=== PATIENT | female | born 1980 | race Caucasian/White ===

== ENCOUNTER 2016-08-21 18:15 | Emergency (ER) | payer OTHER ==
[~2016-08-21] VITALS: Ht 160 cm; Wt 102.5 kg
[2016-08-21 18:35] VITALS: BP 119/69
--- NOTE | 2016-08-21 22:11 | NUR ---
PT TAKEN TO BED 8
--- NOTE | 2016-08-21 22:14 | NUR ---
36 Y/O W/C/O L LOWER ABD PAIN X TODAY. DENIES ANY N/V, FEVER, VAG DISCHARGE OR VAG BLEEDING. ER MD AWARED, NO S/S OF DISTRESS NOTED AT THE MOMENT.
--- NOTE | 2016-08-21 22:25 | NUR ---
Dr. Alvarado evaluating patient at bedside.
--- NOTE | 2016-08-21 22:37 | NUR ---
PT TAKEN TO ULTRASOUND
[2016-08-21 22:45] LABS: APPEARANCE,URINE SL CLOUDY (CLEAR); BILIRUBIN,URINE NEGATIVE (NEGATIVE); BLOOD, URINE NEGATIVE (NEGATIVE); COLOR,URINE YELLOW (YELLOW); LEUKOCYTE ESTERASE ,URINE TRACE (NEGATIVE); NITRITE, URINE NEGATIVE (NEGATIVE); PH,URINE 5.5 (5.0-9.0); PROTEIN,URINE NEGATIVE (NEGATIVE); UGLUCOSE NEGATIVE (NEGATIVE); UROBILINOGEN,URINE 0.2 EU/dL (0.2 - 1)
--- NOTE | 2016-08-21 23:08 | NUR ---
PER ER MD DR ESQUIVEL TO GIVE PT TYLENOL 1000MG.
[2016-08-21] MEDS ORDERED: ACETAMINOPHEN EXTRA STRENGTH 500 MG TAB PO ONE (23:10)
[2016-08-21] MEDS ORDERED: ACETAMINOPHEN EXTRA STRENGTH 500 MG TAB ONE (23:10)
[2016-08-21 23:17] LABS: BACTERIA,URINE 1+ /HPF (None Seen); MUCUS,URINE 4+ /LPF (None Seen); RBC,URINE 0-3 /HPF (0-5)
[2016-08-22 00:05] VITALS: BP 110/68
--- NOTE | 2016-08-22 00:05 | NUR ---
Patient discharged with v/s stable. Written and verbal after care instructions given and explained. Patient alert, oriented and verbalized understanding of instructions. Ambulatory with steady gait. All questions addressed prior to discharge. ID band removed. Patient advised to follow up with OBGYN TOMORROW, OR RETURN TO ER IF CONDITION GETS WORSE. Rx of NAPROSYN AND NORCO given. Patient educated on indication of medication including possible reaction and side effects. Opportunity to ask questions provided and answered.
== END 2016-08-22 00:05 | disposition home or self-care (01) ==
LOC: MED 18:15
DX: O36.4XX0 Maternal care for intrauterine death, not applicable or unspecified (principal); Z3A.12 12 weeks gestation of pregnancy; Z88.6 Allergy status to analgesic agent
CPT/HCPCS: 76817; 81001; 81025; 87086; 99285

== ENCOUNTER 2017-06-28 08:31 | Emergency (ER) | payer OTHER ==
[~2017-06-28] VITALS: Ht 160 cm; Wt 103.9 kg
[2017-06-28 08:43] VITALS: BP 116/68
[2017-06-28] MEDS ORDERED: KETOROLAC 60 MG/2 ML VIAL IM ONE ×2 (09:05→09:11)
--- NOTE | 2017-06-28 09:17 | NUR ---
PATIENT PRESENTS TO ED WITH C/O LLQ pain since 399;hx OF left ovarian cyst . PT FEELS NAUSEOUS BUT DENIES V/D; SKIN IS PINK/WARM/DRY; AAOX4 WITH EVEN AND STEADY GAIT; LUNGS CLEAR BL; HR EVEN AND REGULAR; PT DENIES ANY FEVER, CP, SOB, OR COUGH AT THIS TIME; PATIENT STATES PAIN OF 6/10 AT THIS TIME; PATIENT POSITIONED FOR COMFORT; HOB ELEVATED; BEDRAILS UP X2; BED DOWN. ER MD MADE AWARE OF PT STATUS.
--- NOTE | 2017-06-28 09:58 | NUR ---
pt went to CT SCAN acco,panied by tech.
--- NOTE | 2017-06-28 10:28 | NUR ---
PT BACK FROM US ACCOMPANIED BY BAUTISTA.WILL CONTINUE TO MONITOR PT.
--- NOTE | 2017-06-28 10:39 | NUR ---
PT VERBALIZES RELIEF FROM PAIN;NO FACIAL GRIMMACING NOTED; WILL CONTINUE TO MONITOR.
[2017-06-28 11:06] VITALS: BP 103/54
--- NOTE | 2017-06-28 11:06 | NUR ---
Patient discharged with v/s stable. Written and verbal after care instructions given and explained. Patient alert, oriented and verbalized understanding of instructions. Ambulatory with steady gait. All questions addressed prior to discharge. ID band removed. Patient advised to follow up with PMD. Rx of NAPROSYN AND NORCO given. Patient educated on indication of medication including possible reaction and side effects. Opportunity to ask questions provided and answered.
== END 2017-06-28 11:06 | disposition home or self-care (01) ==
LOC: MED 08:31
DX: N83.202 Unspecified ovarian cyst, left side (principal); Z88.8 Allergy status to other drugs, medicaments and biological substances
CPT/HCPCS: 76830; 81002; 81025; 93325; 96372; 99284; J1885

== ENCOUNTER 2018-03-10 15:52 | Inpatient (IN) | payer OTHER ==
[~2018-03-10] VITALS: Ht 160 cm; Wt 107.5 kg
[2018-03-10 15:58] VITALS: BP 115/76
--- NOTE | 2018-03-10 17:32 | NUR ---
PT AMBULATED TO ER BED 4
--- NOTE | 2018-03-10 17:35 | NUR ---
38 Y/O F W/C/O N/V/D AND GENERALIZED ABD PAIN SINCE THIS AM AROUND 10. ABD SOFT, NON-TENDER TO PALPATION; SKIN IS INTACT, PINK/WARM/DRY; AAOX4, PERRL, WITH EVEN AND STEADY GAIT; LUNGS CLEAR BL, BREATHING UNLABORED; HR EVEN AND REGULAR, BL PERIPHERAL PULSES PRESENT; BS ACTIVE X4, NO TENDERNESS TO PALPATION, NO HEPATOSPLENOMEGALLY PALPATED, RESONANT TO PERCUSSION; PT DENIES ANY FEVER, CP, SOB, OR COUGH AT THIS TIME; PT STATES 10/10 PAIN AT THIS TIME; VSS; PATIENT POSITIONED FOR COMFORT; HOB ELEVATED; BEDRAILS UP X2; BED DOWN. HX DENIES RX DENIES ALLERGIES: MEPERIDINE
[2018-03-10 18:15] LABS: APPEARANCE,URINE HAZY (CLEAR); BILIRUBIN,URINE 1+ (NEGATIVE); BLOOD, URINE 1+ (NEGATIVE); COLOR,URINE YELLOW (YELLOW); LEUKOCYTE ESTERASE ,URINE 2+ (NEGATIVE); NITRITE, URINE NEGATIVE (NEGATIVE); PH,URINE 6.5 (5.0-9.0); UGLUCOSE NEGATIVE (NEGATIVE)
[2018-03-10] MEDS ORDERED: ONDANSETRON 4 MG/2 ML VIAL IVP ONE (18:20)
[2018-03-10] MEDS ORDERED: FAMOTIDINE 20 MG/2 ML VIAL IVP ONE (18:20)
[2018-03-10] MEDS ORDERED: KETOROLAC 30 MG/ML VIAL IVP ONE (18:20)
[2018-03-10] MEDS ORDERED: MORPHINE SULFATE 4 MG/ML SYR IVP ONE (18:20)
[2018-03-10] MEDS ORDERED: NACL 0.9% 1,000 ML IV SCH (18:20)
[2018-03-10] MEDS ORDERED: PROMETHAZINE 25 MG/ML VIAL IM ONE (18:20)
[2018-03-10] MEDS ORDERED: NACL 0.9% 1,000 ML IV ONE ×2 (18:20→20:15)
[2018-03-10 18:28] LABS: RBC,URINE 0-5 (RARE) /HPF (0-5)
--- NOTE | 2018-03-10 18:30 | NUR ---
PT. RESTING COMFORTABLY IN BED , VSS. WILL CONTINUE TO MONITOR.
[2018-03-10 18:37] LABS: BARBITURATE, URINE NEG. ng/ml (NEG <=200); BENZODIAZEPINE, URINE NEG. ng/mL (NEG <=200); CANNABINOID, URINE NEG. ng/mL (NEG <=50); COCAINE, URINE NEG. ng/mL (NEG <=300); OPIATE, URINE NEG. ng/mL (NEG <=2000); PHENCYCLIDINE SCREEN,URINE NEG. ng/mL (NEG <=25)
[2018-03-10 19:06] LABS: ANION GAP 12.1 (8-16); CARBON DIOXIDE 21.8 mmol/L (21-32); CREATININE 1.3 mg/dL (0.6-1.3); POTASSIUM 3.9 mmol/L (3.5-5.1)
[2018-03-10 19:11] LABS: ALBUMIN 3.8 g/dL (3.4-5.0); TOTAL BILIRUBIN 0.5 mg/dL (0.0-1.0)
--- NOTE | 2018-03-10 19:15 | NUR ---
RECEIVED REPORT FROM AM NURSE. PT RESTING COMFORTABLY IN BED, REPORTS 0/10 PAIN, VSS. AT BEDSIDE. ALL NEEDS MET AT THIS TIME.
--- NOTE | 2018-03-10 19:15 | NUR ---
Pt report given to DANIA LAUGHLIN . Transfer of care at this time.
[2018-03-10 19:30] LABS: HEMOGLOBIN 13.7 g/dL (12.0-16.0); MEAN CORPUSCULAR HEMOGLOBIN 28 pg (27-31); MEAN CORPUSCULAR HGB CONC 33 g/dL (33-37); MEAN CORPUSCULAR VOLUME 83.2 fL (80-94); PLATELET COUNT (AUTO) 304 K/uL (140-450); RED BLOOD CELL COUNT(AUTO) 4.93 MIL/uL (4.20-5.40); RED CELL DISTRIBUTION WIDTH 14.4 % (11.6-13.7); WHITE BLOOD COUNT (AUTO) 13.4 K/uL (4.8-10.8)
[2018-03-10 19:36] LABS: LYMPHOCYTES % (MANUAL) 8 % (20-46); MONOCYTES % (MANUAL) 1 % (5-12)
[2018-03-10] MEDS ORDERED: PIPERACILLIN/TAZOBACTAM 3.375 GM in DEXTROSE 5% 50 ML IV ONE (20:15)
[2018-03-10] MEDS ORDERED: PIPERACILLIN/TAZOBACTAM 3.375 GM VIAL IV ONE (20:34)
--- NOTE | 2018-03-10 21:06 | NUR ---
Dr. Victoria evaluating patient at bedside.
--- NOTE | 2018-03-10 21:37 | NUR ---
PT RESTING IN BED, REPORTS 3/10 ABD PAIN TOLERABLE AT THIS TIME, VSS, ALL NEEDS MET AT THIS TIME.
--- NOTE | 2018-03-10 22:30 | NUR ---
Patient will be admitted to care of DR. BERMUDEZ. Admited to MS. Will go to room 105B. Belongings list completed. Report to DANIA GREEN AT BEDSIDE.
[2018-03-10 22:36] VITALS: BP 97/55
--- NOTE | 2018-03-10 22:37 | NUR ---
PT ARRIVED VIA WHEELCHAIR FROM ER, PT AMBULATED TO BED, TOLERATED WELL, REPORT RECEIVED FROM ER NURSE TRUMAN RN, PT STABLE, IV TO L AC 20G DATED, PATENT, INTACT, SL, PT ON ROOM AIR, NO SOB, PT DENIES ANY PAIN AT THIS MOMENT, ORIENT PT TO ROOM, BED, AND CALL LIGHT, MRSA SWAB TAKEN, V/S TAKEN, INITIAL ASSESSMENT DONE, ALL SAFETY PRECAUTION MET, CALL LIGHT WITHIN REACH, WILL CONTINUE TO MONITOR.
[2018-03-10] MEDS ORDERED: INFLUENZA VIRUS VACCINE QUAD 0.5 ML SYR IMVAC ONE (23:00)
[2018-03-10] MEDS ORDERED: ONDANSETRON 4 MG/2 ML VIAL IVP PRN (23:05)
[2018-03-10] MEDS ORDERED: ACETAMINOPHEN 325 MG TAB PO PRN (23:05)
--- NOTE | 2018-03-10 23:08 | NUR ---
TALKED TO DR. MAHAJAN, STATED TO ORDER PT FOR NPO EXCEPT MEDICATION, IV ZOSYN 3.375G Q8H, ZOFRAN 4MG Q6H PRN IVP, TYLENOL 650MG PO Q6H PRN FEVER, MORPHINE 2MG Q4H PRN PAIN, AND NS 75ML/HR, WILL PUT IN ORDERS, AND CONTINUE WITH ORDERS.
[2018-03-10] MEDS ORDERED: INFLUENZA VIRUS VACCINE QUAD 0.5 ML SYR IMVAC PRN (23:35)
[2018-03-10] MEDS: NACL 0.9% 1,000 ML IV SCH (23:42)
[2018-03-10] MEDS: MORPHINE SULFATE 2 MG/ML SYR IVP PRN (23:49)
--- NOTE | 2018-03-10 23:49 | NUR ---
PT STATED HAVING PAIN TO THE UPPER ABD 7/10, PAIN MEDICATION PER MD ORDER ADMINISTERED, PT TOLERATED WELL, NO DISTRESS NOTED, CALL LIGHT WITHIN REACH, WILL CONTINUE TO MONITOR.
[2018-03-11] VITALS: BP 96/56
--- NOTE | 2018-03-11 02:15 | NUR ---
CHECKED ON PT, PT SLEEPING, NO DISTRESS NOTED, CALL LIGHT WITHIN REACH, WILL CONTINUE TO MONITOR.
[2018-03-11] MEDS ORDERED: PIPERACILLIN/TAZOBACTAM 3.375 GM VIAL IV ONE (04:46)
[2018-03-11] MEDS: PIPER/TAZO 3.375GM/D5W PREMIX 50 ML IV SCH ×3 (04:49→21:14)
--- NOTE | 2018-03-11 04:49 | NUR ---
DUE MEDICATION ZOSYN ADMINISTERED, MEDICATION DID NOT SCAN, PT TOLERATED WELL, NO DISTRESS NOTED, CALL LIGHT WITHIN REACH, WILL CONTINUE TO MONITOR.
--- NOTE | 2018-03-11 07:28 | NUR ---
ENDORSED PT TO DAY SHIFT NURSE AMADO RN, PT STABLE, NO DISTRESS NOTED, CALL LIGHT WITHIN REACH.
--- NOTE | 2018-03-11 07:30 | NUR ---
RECEIVED REPORT FROM NIGHT RN. PT RESTING IN BED. AAOX4. NO S/S OF ACUTE DISTRESS. PT DENIES PAIN AT THIS TIME. IV SITE PATENT AND INTACT. PLAN OF CARE DISCUSSED. PT VERBALIZED UNDERSTANDING. CALL LIGHT WITHIN REACH. SAFETY MEASURES ENSURED. WILL CONTINUE TO MONITOR.
[2018-03-11 08:00] VITALS: BP 91/53
--- NOTE | 2018-03-11 08:11 | NUR ---
PATIENT HAS BEEN SCREENED AND CATEGORIZED HIGH NUTRITION RISK. PATIENT WILL BE SEEN WITHIN 1-2 DAYS OF ADMISSION. 03/11/18 03/12/[address]
--- NOTE | 2018-03-11 09:46 | NUR ---
PT RESTING IN BED. NO S/S OF ACUTE DISTRESS. PT DENIES PAIN. CALL LIGHT WITHIN REACH. SAFETY MEASURES ENSURED. WILL CONTINUE TO MONITOR.
--- NOTE | 2018-03-11 10:56 | NUR ---
PT RESTING IN BED. NO S/S OF ACUTE DISTRESS. PT DENIES PAIN. CALL LIGHT WITHIN REACH. SAFETY MEASURES ENSURED. WILL CONTINUE TO MONITOR.
[2018-03-11] MEDS: NACL 0.9% 1,000 ML IV SCH (12:27)
[2018-03-11] MEDS: MORPHINE SULFATE 2 MG/ML SYR IVP PRN ×2 (12:27→19:53)
--- NOTE | 2018-03-11 13:09 | NUR ---
PT RESTING IN BED. NO S/S OF ACUTE DISTRESS. MEDICATED FOR PAIN PREVIOUSLY. WILL CONTINUE TO MONITOR.
--- NOTE | 2018-03-11 13:23 | NUR ---
CM NOTE ADMISSION REVIEW DONE. INITIAL REVIEW FAXED TO [facility] [phone].
--- NOTE | 2018-03-11 14:02 | NUR ---
03/11/18 RD INITIAL ASSESSMENT COMPLETED PLEASE REFER TO NUTRITION ASSESSMENT UNDER CARE ACTIVITY FOR ESTIMATED NUTRITIONAL NEEDS. 1. CONTINUE NPO MEDICALLY NECESSARY 2. WHEN PATIENT IS MEDICALLY STABLE CONSIDER A BLAND DIET TOLERATED. 3. PROVIDED GALLBLADDER NUTRITION EDUCATION 4. RD TO FOLLOW-UP 3-5 DAYS, MODERATE RISK KORI VELASQUEZ RD
[2018-03-11 15:53] VITALS: BP 104/46
--- NOTE | 2018-03-11 15:54 | NUR ---
PT RESTING IN BED. NO S/S OF ACUTE DISTRESS. PT DENIES PAIN. CALL LIGHT WITHIN REACH. SAFETY MEASURES ENSURED. WILL CONTINUE TO MONITOR.
--- NOTE | 2018-03-11 18:35 | NUR ---
CALLED FROM NUCLEAR MED REGARDING PT'S IV. UPON ARRIVAL PT'S IV FLUSHING WELL, DRAWING BACK BLOOD, PT DENIES PAIN, AND PT STATES SHE CAN FEEL THE LIQUID GOING UP HER ARM. IV APPEARS TO BE PATENT AND INTACT.
--- NOTE | 2018-03-11 19:19 | NUR ---
RECEIVED ENDORSEMENT FROM AMADO NAJERA DAYSHIFT NURSE FOR CONTINUITY OF CARE, PT IN STABLE CONDITION.
--- NOTE | 2018-03-11 19:19 | NUR ---
ENDORSED PLAN OF CARE TO NIGHT RN. PT STABLE
--- NOTE | 2018-03-11 20:00 | NUR ---
PT RECEIVED MORPHINE WHILE IN HIDA SCAN AT NUCLEAR MEDICINE, POSITIVE EFFECT NOTED.
--- NOTE | 2018-03-11 21:00 | NUR ---
PT RETURNED FORM NUCLEAR MEDICINE HIDA SCAN COMPLETE. V/S FOLLOWS T 98.8 P 71 R 18 B/P 98/63 02 97 WITH R/A. HARISH MASSEY ORDERED, NO ADVERSE REACTION NOTED.
--- NOTE | 2018-03-11 23:00 | NUR ---
IV SITE ON L AC LOOKS SLIGHTLY RED ABOVE SITE AND PT C/O OF SOME DISCOMFORT IN IV SITE AND THE DIFFICULTY OF KEEPING HAND STRAIGHT, NEW IV SITE PROVIDED ON R HAND WITH 22G, IV SITE FLUSHED PATENT, ATTEMPT STICK X1 PT TOLERATED PROCEDURE WELL. OLD IV SITE TAKEN OUT.PT C/O OF DIAHRREAH X1 DURING HIDA SCAN AND X1 AT ABOUT 1030PM PT C/O OF SLIGHT NAUSEA BUT SAID SHE IS OK, PT DENIES SYDNEE AT THIS TIME.
[2018-03-12] VITALS: BP 102/48
--- NOTE | 2018-03-12 01:00 | NUR ---
PT IN BED NO S/S OF PAIN OR DISTRESS NOTED; V/S FOLLOWS T 98.9 P 80 R 18 B/P 102/48 02 94% WITH R/A IVF RUNNING N/S AT 75 MLS/ HR. BED LOW AND CALL COLEMAN IN REACH.
[2018-03-12] MEDS: NACL 0.9% 1,000 ML IV SCH (01:45)
--- NOTE | 2018-03-12 03:00 | NUR ---
PT ASLEEP WITH NO S/S OF PAIN OR DISTRESS NOTED. BED LOW SIDE RAILS UP X2 AND IVF RUNNING ORDERED.
[2018-03-12] MEDS: PIPER/TAZO 3.375GM/D5W PREMIX 50 ML IV SCH (05:44)
--- NOTE | 2018-03-12 07:20 | NUR ---
RECEIVED REPORT FROM NURSE PRACTITIONER MANAGER NURSE. PT IS AAOX4. NO S/S OF ACUTE DISTRESS ON RM AIR. PT DENIES PAIN AT THIS TIME. IV SITE PATENT AND INTACT, INFUSING NS AT 75ML/HR. PLAN OF CARE DISCUSSED. PT VERBALIZED UNDERSTANDING. BED IN LOWEST POSITION. CALL LIGHT WITHIN REACH. WILL CONTINUE TO MONITOR.
--- NOTE | 2018-03-12 07:37 | NUR ---
ENDORSED CARE TO DAYSHIFT, PT IN STABLE CONDITION
[2018-03-12 08:00] VITALS: BP 109/64
[2018-03-12 10:14] LABS: BASOPHILS # (AUTO) 0.1 K/uL (0.00-0.22); EOSINOPHILS # (AUTO) 0.2 K/uL (0-0.4); EOSINOPHILS % (AUTO) 3.1 % (0.0-4.0); HEMATOCRIT 36.5 % (36-48); HEMOGLOBIN 11.9 g/dL (12.0-16.0); LYMPHOCYTES % (AUTO) 31.2 % (20.5-51.1); MEAN CORPUSCULAR HEMOGLOBIN 28 pg (27-31); MEAN CORPUSCULAR HGB CONC 33 g/dL (33-37); MEAN CORPUSCULAR VOLUME 84.6 fL (80-94); MONOCYTES # (AUTO) 0.3 K/uL (0.8-1.0); NEUTROPHILS # (AUTO) 3.8 K/uL (1.8-7.7); NEUTROPHILS % (AUTO) 59.7 % (42.2-75.2); PLATELET COUNT (AUTO) 256 K/uL (140-450); RED BLOOD CELL COUNT(AUTO) 4.31 MIL/uL (4.20-5.40); RED CELL DISTRIBUTION WIDTH 14.4 % (11.6-13.7); WHITE BLOOD COUNT (AUTO) 6.4 K/uL (4.8-10.8)
--- NOTE | 2018-03-12 12:24 | NUR ---
CM NOTE CONCURRENT REVIEW FAXED TO [facility] [phone]
--- NOTE | 2018-03-12 15:35 | NUR ---
PT DENIES ANY NAUSEA, VOMITING, DIARRHEA.
[2018-03-12 16:00] VITALS: BP 97/63
--- NOTE | 2018-03-12 17:46 | NUR ---
PT DISCHARGED PER MD ORDER. DISCHARGE INSTRUCTION PROVIDED TO PT. PT VERBALIZED UNDERSTANDING. MADE PT AWARE THAT TO FOLLOW UP WITH DR ZULUAGA AND HER PCP. IV CATH DC'D, TIP INTACT, PRESSURE APPLIED. ALL DISCHARGE PAPER SIGNED BY PT. PT WILL LEAVE AFTER DINNER.
--- NOTE | 2018-03-12 18:05 | NUR ---
PT LEFT WITH HER BELONGINGS.
== END 2018-03-12 18:05 | disposition home or self-care (01) ==
LOC: MED 15:52 → MTU 22:21
PROVIDERS: ADMIT Internal Medicine; ATTEND Internal Medicine
PROC: 3E0234Z Introduction of Serum, Toxoid and Vaccine into Muscle, Percutaneous Approach (ICD-10-PCS; principal; 2018-03-12)
DX: K80.00 Calculus of gallbladder with acute cholecystitis without obstruction (principal); E66.01 Morbid (severe) obesity due to excess calories; D72.825 Bandemia; R73.9 Hyperglycemia, unspecified; N83.202 Unspecified ovarian cyst, left side; Z68.41 Body mass index [BMI] 40.0-44.9, adult; Z88.5 Allergy status to narcotic agent; Z23 Encounter for immunization; K52.9 Noninfective gastroenteritis and colitis, unspecified
CPT/HCPCS: 36415; 76705; 78445; 80053; 80305; 81001; 81025; 82150; 83690; 84703; 85025; 87040; 87081; 87086; 90658; 96361; 96365; 96375; 99285; J1885; J2270; J2405; J2543; J2550; J3490; J7030; J7060